=== PATIENT | female | born 1945 | race Caucasian/White ===

== ENCOUNTER 2016-05-04 08:34 | Day surgery (SDC) | payer MEDICARE ==
[~2016-05-04] VITALS: Ht 165.1 cm; Wt 67.1 kg
[~2016-05-04 08:34] MED LIST: 0.9% Sodium Chloride 1,000 ML IV SCH; Sodium Chloride LOK Flush 10 mL Syringe IV PRN; fentaNYL-PF 50 mCg/mL 2 mL Inj IVPUSH PRN
[2016-05-04 08:58] VITALS: BP 120/72; PULSE 60; RESP 17; O2SAT 97
[2016-05-04 09:58] VITALS: BP 97/55; PULSE 51; RESP 14; O2SAT 96
[2016-05-04 10:08] VITALS: BP 95/56; PULSE 52; RESP 12; O2SAT 96
[2016-05-04 10:17] VITALS: BP 96/57; PULSE 52; RESP 12; O2SAT 96
[2016-05-04 10:27] VITALS: BP 111/67; PULSE 57; RESP 16; O2SAT 97
--- NOTE | 2016-05-04 20:27 | ENDO ---
[address] [address] ENDOSCOPY PROCEDURE PATIENT: CALLIE ROMERO : 1945 MR#: [id number] ADMIT: 05/04/2016 JOB ID: [id number] PRIMARY PROVIDER: Barb Ortiz. PROCEDURES: A colonoscopy with cold forceps polypectomy. INDICATIONS: A 70-year-old female who reports for colon cancer screening. EQUIPMENT: PCF-H180AL. SEDATION: 5 mg Versed, 100 mcg fentanyl. COMPLICATIONS: None identified. BOWEL PREPARATION: Fair. Adequate exam. PROCEDURE INFORMATION: After the risks and benefits were explained, written and verbal informed consent was obtained, the patient was brought into the endoscopy suite and placed into the left lateral decubitus position. Sedation was achieved using the above-stated medications with the addition of oxygen via nasal cannula. A digital rectal examination was accomplished. No significant pathology appreciated. The scope was introduced into the rectum and advanced to cecum as identified by the appendiceal orifice and ileocecal valve. The scope was slowly withdrawn to carefully examine the mucosa for any defects or lesions. Multiple direct views were made through the dentate line for exclusion of pathology. The colon was decompressed. The scope removed from the patient who tolerated the procedure well. FINDINGS: There was a very diminutive 2 mm polyp removed with cold forceps from the cecum. There was some mild diverticulosis in the left colon. No other significant pathology was appreciated throughout. ENDOSCOPIC DIAGNOSES: 1. Colon polyp. 2. Diverticulosis. RECOMMENDATIONS: 1. Await histopathology. 2. If adenomatous, repeat colonoscopy five years. If hyperplastic, repeat colonoscopy 10 years. CC: Barb Ortiz NP.
--- NOTE | 2016-05-05 11:58 | PATH ---
SURGICAL PATHOLOGY Attending Physician:Matthew Alvares CASE STATUS: Signed Out PATIENT NAME: CALLIE ROMERO PID: [id number] : 1945 DATE COLLECTED:05/04/2016 17:25 SPECIMEN: Colon, Biopsy CLINICAL HISTORY: A: CECAL POLYP FINAL DIAGNOSIS: 1.CECAL POLYP: TUBULAR ADENOMA. ICD10 CODE D12.0 GROSS DESCRIPTION: The specimen is received in one formalin filled container labeled with the patient's name, sublabeled "cecal polyp" and consists of a 0.2 x 0.2 x 0.2 CM portion of tissue which is entirely submitted in one cassette. 05/04/2016 DAC MICRO DESCRIPTION: See diagnosis. ICD-9 CODES: CPT CODES: 1: 46000 Electronically Signed Out Kirstin Carbajal MD [facility] Pathology [facility] [address], [place] [address] Technical component performed at [facility], [facility] [address], [address]
== END 2016-05-04 23:59 | disposition home or self-care (01) ==
LOC: END 08:34
PROVIDERS: ATTEND Internal Medicine Gastroenterology
DX: Z12.11 Encounter for screening for malignant neoplasm of colon (principal); D12.0 Benign neoplasm of cecum; K57.30 Diverticulosis of large intestine without perforation or abscess without bleeding; Z86.010 Personal history of colon polyps; E78.5 Hyperlipidemia, unspecified; K58.9 Irritable bowel syndrome, unspecified; M72.0 Palmar fascial fibromatosis [Dupuytren]; Z87.440 Personal history of urinary (tract) infections
CPT/HCPCS: 45380; J2250; J7030